=== PATIENT | male | born 1995 | race Caucasian/White ===

== ENCOUNTER → 2024-05-14 | Outpatient (CLI) | payer OTHER | LOC: M PLAIMG 06:47 | PROVIDERS: ATTEND General Practice | DX: M22.41 Chondromalacia patellae, right knee (principal); M67.51 Plica syndrome, right knee ==

== ENCOUNTER 2024-11-25 09:15 | Emergency (ER) | payer OTHER ==
[~2024-11-25] VITALS: Ht 177.8 cm; Wt 103.3 kg
[2024-11-25] MEDS ORDERED: HYDR-3713 PO (11:28)
[2024-11-25 11:35] VITALS: BP 119/71; TEMP 99.1; O2SAT 98
== END 2024-11-25 11:43 | disposition home or self-care (01) ==
LOC: M ED 09:15
DX: G89.18 Other acute postprocedural pain (principal); M25.561 Pain in right knee; Z79.1 Long term (current) use of non-steroidal anti-inflammatories (NSAID)